=== PATIENT | female | born 1970 | race African-American/Black ===

== ENCOUNTER 2018-09-12 16:05 | Emergency (ER) | payer OTHER ==
[~2018-09-12] VITALS: Ht 175.3 cm; Wt 83.0 kg
[2018-09-12] MEDS ORDERED: SLOW FE142 MG PO (16:13)
[2018-09-12] MEDS ORDERED: TAM75CAP PO (17:38)
[2018-09-12 17:40] VITALS: BP 129/66
== END 2018-09-12 17:40 | disposition home or self-care (01) | DRG 864 ==
LOC: ED 16:05
DX: R50.9 Fever, unspecified (principal); R05 Cough

== ENCOUNTER 2018-10-20 20:56 | Emergency (ER) | payer OTHER ==
[~2018-10-20] VITALS: Ht 175.3 cm; Wt 79.6 kg
[~2018-10-20 20:56] MED LIST: SLOW FE142 MG PO; TAM75CAP PO
[2018-10-20 21:55] LABS: IMMATURE GRANULOCYTES 0.4 % (0.0-5.0); MEAN CELL VOLUME 74.4 fL CALC (80.0-100.0); MEAN CORPUSCULAR HGB 20.7 pG CALC (26.0-32.0); MEAN CORPUSCULAR HGB CONC 27.8 g/L CALC (32.0-36.0); NEUT# 5.5 thou/uL (2.00-7.15); RED BLOOD COUNT 3.24 mill/uL (4.20-5.60)
[2018-10-20 21:55] LABS: URINE BLOOD DIPSTICK SMALL (NEGATIVE); URINE COLOR YELLOW; URINE GLUCOSE - DIPSTICK NEGATIVE (NEGATIVE); URINE KETONE NEGATIVE (NEGATIVE); URINE LEUK ESTERASE NEGATIVE (NEGATIVE); URINE NITRITE - DIPSTICK NEGATIVE (Negative); URINE PROTEIN - DIPSTICK 100 mg/dL (NEG-TRACE)
[2018-10-20 21:59] LABS: HEMATOCRIT 24.1 % (37.0-47.0); HEMOGLOBIN 6.7 g/dl (12.0-16.0)
[2018-10-20 22:00] LABS: URINE BILIRUBIN - DIPSTICK SMALL (NEGATIVE)
[2018-10-20 22:13] LABS: URINE SQUAMOUS EPITHELIAL CELL FEW EPI/hpf (0-FEW)
[2018-10-20] MEDS ORDERED: TRANEXAMIC ACI650 MG PO (22:27)
[2018-10-20] MEDS ORDERED: BLISOVI FE PO (22:28)
[2018-10-20 22:30] LABS: ALKALINE PHOSPHATASE 156 u/l (38-126); ANION GAP 15 (6-22 (CALC)); BILIRUBIN, TOTAL 1.1 mg/dL (0.0-1.4); BUN 9 mg/dL (7-17); BUN/CREATININE RATIO 14 (12-20 (CALC)); C-REACTIVE PROTEIN 6.8 mg/dL (0-0.9); CARBON DIOXIDE 25 mmol/l (22-30); CHLORIDE 101 mmol/l (95-108); CPK 66 u/l (30-165); CREATININE 0.7 mg/dL (0.5-1.0); GFR > 60 ML/MIN (>=60 (CALC)); GFR FOR AFR.AMER. > 60 ML/MIN (>=60 (CALC)); POTASSIUM 3.5 mmol/l (3.5-5.1); SGOT/AST 29 u/l (14-36); SODIUM 136 mmol/l (137-146); TOTAL PROTEIN 8.3 g/dL (6.3-8.2)
[2018-10-20 22:37] LABS: MYOGLOBIN 47 ng/mL (0 - 62)
[2018-10-20 22:59] LABS: TSH, 3RD GENERATION 2.48 uIU/mL (0.47 - 4.68)
[2018-10-20] MEDS ORDERED: TRAMADOL HCL50 MG PO (23:27)
[2018-10-20] MEDS ORDERED: STERAPRED DS10 MG PO (23:27)
[2018-10-20 23:55] VITALS: BP 111/53
== END 2018-10-20 23:57 | disposition home or self-care (01) | DRG 556 ==
LOC: ED 20:56
PROVIDERS: Family Medicine
DX: M79.10 Myalgia, unspecified site (principal); M25.50 Pain in unspecified joint; D64.9 Anemia, unspecified; N94.6 Dysmenorrhea, unspecified

== ENCOUNTER 2018-11-01 00:42 | Inpatient (IN) | payer OTHER ==
[~2018-11-01] VITALS: Ht 175.3 cm; Wt 78.2 kg
[2018-11-01] VITALS (8 sets, daily range): BP systolic 111–143; BP diastolic 44–52
[~2018-11-01 00:42] MED LIST changes: +BLISOVI FE PO; +STERAPRED DS10 MG PO; +TRAMADOL HCL50 MG PO; +TRANEXAMIC ACI650 MG PO
[2018-11-01 01:58] LABS: HEMATOCRIT 23.7 % (37.0-47.0); IMMATURE GRANULOCYTES 0.6 % (0.0-5.0); MEAN CELL VOLUME 73.1 fL CALC (80.0-100.0); MEAN CORPUSCULAR HGB 20.4 pG CALC (26.0-32.0); MEAN CORPUSCULAR HGB CONC 27.8 g/L CALC (32.0-36.0); NEUT# 10.39 thou/uL (2.00-7.15); RED BLOOD COUNT 3.24 mill/uL (4.20-5.60); RED CELL DISTRI WIDTH 22.6 % (11.5-15.5)
[2018-11-01 02:01] LABS: URINE BLOOD DIPSTICK MODERATE (NEGATIVE); URINE COLOR YELLOW; URINE GLUCOSE - DIPSTICK NEGATIVE (NEGATIVE); URINE KETONE NEGATIVE (NEGATIVE); URINE LEUK ESTERASE NEGATIVE (NEGATIVE); URINE NITRITE - DIPSTICK NEGATIVE (Negative); URINE PROTEIN - DIPSTICK 100 mg/dL (NEG-TRACE); URINE SPECIFIC GRAVITY >=1.030
[2018-11-01 02:02] LABS: URINE BILIRUBIN - DIPSTICK NEGATIVE (NEGATIVE)
[2018-11-01 02:05] LABS: HEMOGLOBIN 6.6 g/dl (12.0-16.0)
[2018-11-01 02:12] LABS: URINE WBC 0-2 WBC/hpf (0-5)
[2018-11-01 02:15] LABS: ALBUMIN 3.2 g/dL (3.2-5.0); ALKALINE PHOSPHATASE 197 u/l (38-126); ANION GAP 14 (6-22 (CALC)); BILIRUBIN, TOTAL 1.2 mg/dL (0.0-1.4); BUN 11 mg/dL (7-17); BUN/CREATININE RATIO 20 (12-20 (CALC)); CARBON DIOXIDE 26 mmol/l (22-30); CHLORIDE 105 mmol/l (95-108); CREATININE 0.6 mg/dL (0.5-1.0); GFR > 60 ML/MIN (>=60 (CALC)); GFR FOR AFR.AMER. > 60 ML/MIN (>=60 (CALC)); SGOT/AST 29 u/l (14-36); SODIUM 142 mmol/l (137-146)
[2018-11-01 06:47] LABS: HEMATOCRIT 22.5 % (37.0-47.0); MEAN CELL VOLUME 73.3 fL CALC (80.0-100.0); MEAN CORPUSCULAR HGB 20.5 pG CALC (26.0-32.0); RED BLOOD COUNT 3.07 mill/uL (4.20-5.60); RED CELL DISTRI WIDTH 22.9 % (11.5-15.5)
[2018-11-01 06:49] LABS: HEMOGLOBIN 6.3 g/dl (12.0-16.0)
[2018-11-01 23:19] LABS: HEMOGLOBIN 7.9 g/dl (12.0-16.0)
[2018-11-02 03:20] VITALS: BP 135/47
[2018-11-02 05:45] LABS: HEMATOCRIT 27.4 % (37.0-47.0); HEMOGLOBIN 7.9 g/dl (12.0-16.0); IMMATURE GRANULOCYTES 0.5 % (0.0-5.0); MEAN CELL VOLUME 74.1 fL CALC (80.0-100.0); MEAN CORPUSCULAR HGB 21.4 pG CALC (26.0-32.0); MEAN CORPUSCULAR HGB CONC 28.8 g/L CALC (32.0-36.0); NEUT# 9.03 thou/uL (2.00-7.15); RED BLOOD COUNT 3.7 mill/uL (4.20-5.60); RED CELL DISTRI WIDTH 22.2 % (11.5-15.5)
[2018-11-02 06:13] LABS: ALBUMIN 3.2 g/dL (3.2-5.0); ALKALINE PHOSPHATASE 186 u/l (38-126); BILIRUBIN, TOTAL 1.2 mg/dL (0.0-1.4); BUN 14 mg/dL (7-17); BUN/CREATININE RATIO 28 (12-20 (CALC)); CHLORIDE 107 mmol/l (95-108); CREATININE 0.5 mg/dL (0.5-1.0); GFR > 60 ML/MIN (>=60 (CALC)); GFR FOR AFR.AMER. > 60 ML/MIN (>=60 (CALC)); SGOT/AST 39 u/l (14-36); SODIUM 140 mmol/l (137-146); TOTAL PROTEIN 7.4 g/dL (6.3-8.2)
[2018-11-02 06:14] LABS: ANION GAP 17 (6-22 (CALC)); CARBON DIOXIDE 20 mmol/l (22-30); POTASSIUM 4.2 mmol/l (3.5-5.1)
[2018-11-02 08:08] VITALS: BP 126/57
[2018-11-02 11:00] VITALS: BP 136/52
[2018-11-02 14:57] VITALS: BP 128/48
[2018-11-02 19:20] VITALS: BP 123/59
[2018-11-02 23:42] VITALS: BP 130/63
[2018-11-03 04:03] VITALS: BP 119/53
[2018-11-03 07:47] LABS: HEMOGLOBIN 8.8 g/dl (12.0-16.0); MEAN CELL VOLUME 74.9 fL CALC (80.0-100.0); MEAN CORPUSCULAR HGB 21.3 pG CALC (26.0-32.0); MEAN CORPUSCULAR HGB CONC 28.4 g/L CALC (32.0-36.0); RED BLOOD COUNT 4.14 mill/uL (4.20-5.60); RED CELL DISTRI WIDTH 23.2 % (11.5-15.5)
[2018-11-03 08:06] LABS: ANION GAP 17 (6-22 (CALC)); BUN 17 mg/dL (7-17); BUN/CREATININE RATIO 29 (12-20 (CALC)); CARBON DIOXIDE 18 mmol/l (22-30); CHLORIDE 108 mmol/l (95-108); CREATININE 0.6 mg/dL (0.5-1.0); GFR > 60 ML/MIN (>=60 (CALC)); GFR FOR AFR.AMER. > 60 ML/MIN (>=60 (CALC)); POTASSIUM 4.1 mmol/l (3.5-5.1); SODIUM 138 mmol/l (137-146)
[2018-11-03 09:45] VITALS: BP 126/53
[2018-11-03 12:00] VITALS: BP 131/50
[2018-11-03 15:00] VITALS: BP 127/52
[2018-11-03 19:50] VITALS: BP 120/57
== END 2018-11-03 22:00 | disposition short-term general hospital (02) | DRG 871 ==
LOC: ED 00:42 → ED-I 05:19 → ED 05:43 → MS2 05:45
PROVIDERS: Emergency Medicine; Internal Medicine; ADMIT Internal Medicine; ATTEND Internal Medicine
PROC: 30233N1 Transfusion of Nonautologous Red Blood Cells into Peripheral Vein, Percutaneous Approach (ICD-10-PCS; principal; 2018-11-01)
DX: R78.81 Bacteremia (principal); J18.9 Pneumonia, unspecified organism; I08.3 Combined rheumatic disorders of mitral, aortic and tricuspid valves; D50.0 Iron deficiency anemia secondary to blood loss (chronic); D25.9 Leiomyoma of uterus, unspecified; M25.50 Pain in unspecified joint; B95.4 Other streptococcus as the cause of diseases classified elsewhere
CPT/HCPCS: P9016; Q9967

== ENCOUNTER 2019-04-16 | Emergency (ER) | payer OTHER ==
[2019-04-16 20:31] LABS: IMMATURE GRANULOCYTES 0.2 % (0.0-5.0); MEAN CORPUSCULAR HGB 26.5 pG CALC (26.0-32.0); MEAN CORPUSCULAR HGB CONC 31.9 g/L CALC (32.0-36.0); NEUT# 1.9 thou/uL (2.00-7.15); RED BLOOD COUNT 4.65 mill/uL (4.20-5.60); RED CELL DISTRI WIDTH 21.1 % (11.5-15.5)
[2019-04-16 20:39] LABS: BUN 15 mg/dL (7-17); BUN/CREATININE RATIO 23 (12-20 (CALC)); CHLORIDE 103 mmol/l (95-108); CREATININE 0.7 mg/dL (0.5-1.0); ETHYL ALCOHOL 0 mg/dl (0-30); GFR > 60 ML/MIN (>=60 (CALC)); GFR FOR AFR.AMER. > 60 ML/MIN (>=60 (CALC)); POTASSIUM 3.6 mmol/l (3.5-5.1); SGOT/AST 24 u/l (14-36); SODIUM 140 mmol/l (137-146)
[2019-04-16 20:40] LABS: HEMATOCRIT 38.5 % (37.0-47.0); HEMOGLOBIN 12.3 g/dl (12.0-16.0); MEAN CELL VOLUME 82.8 fL CALC (80.0-100.0)
[2019-04-16 20:41] LABS: ALBUMIN 4.6 g/dL (3.2-5.0); ALKALINE PHOSPHATASE 55 u/l (38-126); ANION GAP 16 (6-22 (CALC)); BILIRUBIN, TOTAL 0.7 mg/dL (0.0-1.4); CARBON DIOXIDE 25 mmol/l (22-30); TOTAL PROTEIN 9.2 g/dL (6.3-8.2)
[2019-04-16 20:51] LABS: MYOGLOBIN 21 ng/mL (0 - 62)
[2019-04-16 22:19] LABS: URINE BILIRUBIN - DIPSTICK NEGATIVE (NEGATIVE); URINE BLOOD DIPSTICK NEGATIVE (NEGATIVE); URINE COLOR YELLOW; URINE GLUCOSE - DIPSTICK NEGATIVE (NEGATIVE); URINE KETONE NEGATIVE (NEGATIVE); URINE LEUK ESTERASE NEGATIVE (NEGATIVE); URINE NITRITE - DIPSTICK NEGATIVE (Negative); URINE PROTEIN - DIPSTICK NEGATIVE (NEG-TRACE); URINE UROBILINOGEN - DIPSTICK 0.2 E.U./dL (0.2)
[2019-04-16 22:24] LABS: BARBITURATES NEGATIVE (NEGATIVE); COCAINE NEGATIVE (NEGATIVE); METHADONE NEGATIVE (NEGATIVE); OXCYCODONE NEGATIVE (NEGATIVE); TETRAHYDROCANNABIONOL NEGATIVE (NEGATIVE); TRICYLIC ANTIDEPRESSANTS NEGATIVE (NEGATIVE)
== END 2019-04-17 03:48 | disposition home or self-care (01) | DRG 310 ==
PROVIDERS: Emergency Medicine
DX: R00.2 Palpitations (principal); I10 Essential (primary) hypertension

== ENCOUNTER 2019-11-06 01:45 | Emergency (ER) | payer OTHER ==
[~2019-11-06] VITALS: Ht 175.3 cm; Wt 90.9 kg
[2019-11-06] MEDS ORDERED: METOPROL TAR25 M1 PO (02:08)
[2019-11-06] MEDS ORDERED: APRESOLINE25 MG/TAB PO (02:08)
[2019-11-06 02:37] LABS: HEMATOCRIT 35.3 % (37.0-47.0); HEMOGLOBIN 11.3 g/dl (12.0-16.0); MEAN CORPUSCULAR HGB 28.2 pG CALC (26.0-32.0); NEUT# 2.57 thou/uL (2.00-7.15); RED BLOOD COUNT 4.01 mill/uL (4.20-5.60); RED CELL DISTRI WIDTH 15.1 % (11.5-15.5)
[2019-11-06 02:40] LABS: ALBUMIN 4.2 g/dL (3.2-5.0); ALKALINE PHOSPHATASE 58 u/l (38-126); ANION GAP 7 (6-22 (CALC)); BILIRUBIN, TOTAL 0.7 mg/dL (0.0-1.4); BUN 13 mg/dL (7-17); BUN/CREATININE RATIO 25 (12-20 (CALC)); CARBON DIOXIDE 26 mmol/l (22-30); CHLORIDE 107 mmol/l (95-108); CREATININE 0.5 mg/dL (0.5-1.0); GFR > 60 ML/MIN (>=60 (CALC)); GFR FOR AFR.AMER. > 60 ML/MIN (>=60 (CALC)); POTASSIUM 4.2 mmol/l (3.5-5.1); SGOT/AST 33 u/l (14-36); SODIUM 136 mmol/l (137-146); TOTAL PROTEIN 8.1 g/dL (6.3-8.2)
[2019-11-06 03:06] LABS: URINE BILIRUBIN - DIPSTICK NEGATIVE (NEGATIVE); URINE BLOOD DIPSTICK NEGATIVE (NEGATIVE); URINE COLOR YELLOW; URINE GLUCOSE - DIPSTICK NEGATIVE (NEGATIVE); URINE KETONE NEGATIVE (NEGATIVE); URINE LEUK ESTERASE NEGATIVE (NEGATIVE); URINE NITRITE - DIPSTICK NEGATIVE (Negative); URINE PROTEIN - DIPSTICK NEGATIVE (NEG-TRACE); URINE SPECIFIC GRAVITY <=1.005; URINE UROBILINOGEN - DIPSTICK 0.2 E.U./dL (0.2)
[2019-11-06 03:35] VITALS: BP 145/73
== END 2019-11-06 03:35 | disposition home or self-care (01) | DRG 305 ==
LOC: ED 01:45
PROVIDERS: Family Medicine
DX: I10 Essential (primary) hypertension (principal)

== ENCOUNTER 2022-09-03 09:57 | Emergency (ER) | payer OTHER ==
[~2022-09-03] VITALS: Ht 175.3 cm; Wt 82.0 kg
[2022-09-03] VITALS (20 sets, daily range): BP systolic 101–136; BP diastolic 62–84
[~2022-09-03 09:57] MED LIST changes: +APRESOLINE10 MG PO; +METOPROL TAR25 M1 PO
[2022-09-03 10:42] LABS: BASO% 0.2 % (0-3); EOS% 1.7 % (0-8); HEMOGLOBIN 13.2 g/dl (12.0-16.0); IMMATURE GRANULOCYTES 0.7 % (0.0-5.0); LYMPH% 40.3 % (15-41); MEAN CELL VOLUME 88.8 fL CALC (80.0-100.0); MEAN CORPUSCULAR HGB 27.9 pG CALC (26.0-32.0); MEAN CORPUSCULAR HGB CONC 31.4 g/dL CAL (32.0-36.0); MONO% 8.7 % (2-13); NEUT# 2.05 thou/uL (2.00-7.15); NEUT% 48.4 % (42-76); RED BLOOD COUNT 4.73 mill/uL (4.20-5.60); RED CELL DISTRI WIDTH 15.2 % (11.5-15.5)
[2022-09-03 10:59] LABS: URINE BILIRUBIN - DIPSTICK NEGATIVE (NEGATIVE); URINE BLOOD DIPSTICK NEGATIVE (NEGATIVE); URINE COLOR YELLOW; URINE GLUCOSE - DIPSTICK NEGATIVE (NEGATIVE); URINE KETONE NEGATIVE (NEGATIVE); URINE LEUK ESTERASE NEGATIVE (NEGATIVE); URINE PH 6.5 (4.5-8.0); URINE PROTEIN - DIPSTICK NEGATIVE (NEG-TRACE); URINE UROBILINOGEN - DIPSTICK 0.2 E.U./dL (0.2)
[2022-09-03 11:00] LABS: URINE NITRITE - DIPSTICK NEGATIVE (Negative)
[2022-09-03 11:02] LABS: ALKALINE PHOSPHATASE 74 u/l (38-126); ANION GAP 15 (6-22 (CALC)); BILIRUBIN, TOTAL 0.9 mg/dL (0.02-1.3); BUN 14 mg/dL (7-17); BUN/CREATININE RATIO 19 (12-20 (CALC)); CARBON DIOXIDE 28 mmol/l (22-30); CHLORIDE 103 mmol/l (95-108); CREATININE 0.8 mg/dL (0.5-1.0); GFR FOR AFR.AMER. > 60 ML/MIN (>=60 (CALC)); GFR OTHER RACES > 60 ML/MIN (>=60 (CALC)); POTASSIUM 4.1 mmol/l (3.5-5.1); SGOT/AST 49 u/l (14-36); SODIUM 142 mmol/l (137-146); TOTAL PROTEIN 9.3 g/dL (6.3-8.2)
== END 2022-09-03 14:52 | disposition home or self-care (01) | DRG 305 ==
LOC: ED 09:57
PROVIDERS: Family Medicine
DX: I10 Essential (primary) hypertension (principal); R01.1 Cardiac murmur, unspecified
CPT/HCPCS: Q9967

== ENCOUNTER 2024-04-24 18:18 | Emergency (ER) | payer OTHER ==
[~2024-04-24] VITALS: Ht 175.3 cm; Wt 112.0 kg
[2024-04-24 18:23] VITALS: BP 131/84
[2024-04-24 18:30] VITALS: BP 128/84
[2024-04-24 19:00] VITALS: BP 115/81
[2024-04-24] MEDS ORDERED: PREDNISONE50 MG PO (19:00)
[2024-04-24] MEDS ORDERED: TRAMADOL HYDROC50 M1 PO (19:00)
[2024-04-24] MEDS ORDERED: traMADol HCL 50 MG/TAB PO ONE (19:05)
[2024-04-24 19:30] VITALS: BP 134/88
== END 2024-04-24 19:34 | disposition home or self-care (01) | DRG 556 ==
LOC: ED 18:18
DX: M25.571 Pain in right ankle and joints of right foot (principal); M25.471 Effusion, right ankle